=== PATIENT | female | born 1990 | race Caucasian/White ===

== ENCOUNTER → 2017-05-09 | Day surgery (SDC) | payer MEDICAID ==
[~2017-05-09] MED LIST: KETOROLAC TROMETHAMINE 30 MG/ML (IVP) VIAL IV PUSH ONE; LEXA20TA PO; MIDAZOLAM HCL 2 MG/2 ML VIAL ONE; ONDANSETRON HCL 4 MG/2 ML VIAL IV PUSH ONE; OXYTOCIN 10 UNIT/ML AMP IM ONE; OXYTOCIN 10 UNIT/ML AMP ONE; PROPOFOL 200 MG/20 ML AMP IV ONE; ceFAZolin 2 GM PREMIX 50 ML ONE
--- NOTE | 2017-05-09 08:54 | MP ---
cc: CHLOE ANTHONY MD DATE OF SURGERY: 05/09/2017 PREOPERATIVE DIAGNOSIS: Incomplete . POSTOPERATIVE DIAGNOSIS: Incomplete . OPERATION: Suction and sharp curetting. SURGEON Dr. Anthony. ANESTHESIA General. ESTIMATED BLOOD LOSS 150 ccs. MAIL SUPERINTENDENT None. FINDINGS None. PROCEDURE The patient was prepped and draped in the dorsolithotomy position. A weighted speculum was placed in the posterior vaginal vault. Anterior lip of the cervix was grasped with a single-tooth tenaculum. The cervix was dilated using Cosme dilators and a #8 suction curetting instrument was entered in the endometrial cavity, suction curettings were taken, after which a sharp curetting instrument was entered in the endometrial cavity and sharp curettings were taken. After good hemostasis was noted, the tenaculum and speculum were removed. The patient returned to the recovery room in stable condition. MD YESY Shelley/TLL /8:31 AM /8:38 AM
--- NOTE | 2017-05-09 12:24 | TH ---
cc: PIERRE ANTHONY MD DATE: 05/09/2017 REASON FOR ADMISSION This patient is a 27 year-old white female. She is a 3, para 1. She is being admitted to the surgery center for therapy of missed . HISTORY OF PRESENT ILLNESS The patient is well-known to our practice and she was seen on the first visit and was followed up with ultrasound scan examination. She was given immediate ultrasound scan examination because the patient had reported episodes of bleeding. Ultrasound scan examination revealed a sack, but no pool. We discussed the risks and procedure of suction D&C and patient had expressed a desire to undergo this procedure. ALLERGIES SHE HAS ALLERGIES TO PENICILLIN AND SULFA. SOCIAL HISTORY She is a former smoker, but nondrinker. REVIEW OF SYSTEMS Essentially noncontributory. PHYSICAL EXAM The patient is a well-developed, well-nourished female in no acute distress. VITAL SIGNS: Blood pressure was 120/64, pulse 70, respirations 12. HEAD, EYES, EARS, NOSE, AND THROAT: Negative. CHEST: Clear to auscultation. CARDIOVASCULAR: Regular rate. ABDOMEN: Soft. Bowel sounds were positive. PELVIC: Examination revealed a uterus which is approximately eight weeks in size. Cervix was dilated. EXTREMITIES: Reveal no clubbing, cyanosis or edema. IMPRESSION ON ADMISSION Intrauterine demise. PLAN Suction D&C. Pierre Anthony MD JSG/DJL /10:42 AM /12:16 PM
== END | disposition home or self-care (01) ==
LOC: ESDC 06:38
PROVIDERS: ATTEND Obstetrics & Gynecology
DX: O02.1 Missed abortion (principal); Z88.0 Allergy status to penicillin; Z87.891 Personal history of nicotine dependence
CPT/HCPCS: 01965; 36415; 59820; 86900; 86901; 88305; J0690; J1885; J2250; J2405; J2590; J3010